=== PATIENT | female | born 1995 | race Caucasian/White ===

== ENCOUNTER 2021-01-16 00:28 | Emergency (ER) | payer OTHER ==
[~2021-01-16] VITALS: Ht 154.9 cm; Wt 44.5 kg
--- NOTE | 2021-01-16 01:00 | NUR ---
Pt came to be evaluated for covid. Was exposed to her MIL who is covid +. Pt has cough, headache, sore throat, congestion past 5 days. Vss, pt. not in distress. Will continue to monitor.
[2021-01-16] MEDS ORDERED: AZIT500T PO (02:17)
[2021-01-16] MEDS ORDERED: DEXA6TAB6 PO (02:17)
[2021-01-16] MEDS ORDERED: PROM5SYR PO (02:17)
[2021-01-16 02:47] VITALS: BP 116/66
--- NOTE | 2021-01-16 02:47 | NUR ---
Patient discharged to home in stable condition. Written and verbal after care instructions given. Patient verbalizes understanding of instructions. Stressed follow up or return to ER for worsening s/s. Patient out of ER with steady gait, no acute signs of distress, VSS, all belongings taken, provided with copies of lab results.
== END 2021-01-16 02:40 | disposition home or self-care (01) ==
LOC: ER 00:30
DX: U07.1 COVID-19 (principal)
CPT/HCPCS: A4663